=== PATIENT | female | born 1985 | race Caucasian/White ===

== ENCOUNTER 2020-11-17 03:18 | Emergency (ER) | payer OTHER, SELFPAY ==
[2020-11-17 03:22] VITALS: BP 190/104; PULSE 70; RESP 18; TEMP 36.3; O2SAT 98; BMI 42.5
[2020-11-17 03:28] LABS: Basophils % 0.4 %; Eosinophils % 0.1 %; Hematocrit 43.5 % (37.0-47.0); Hemoglobin 14.8 g/dL (11.5-15.3); Lymphocytes # 1.2 10^3/uL (0.8-4.8); Lymphocytes % 17.7 %; Mean Corpuscular Hemoglobin 30.6 pg (28.0-34.0); Mean Corpuscular Volume 90.1 fL (81-99); Monocytes # 0.3 10^3/uL (0.2-0.9); Monocytes % 4.3 %; Neutrophils # 5.42 10^3/uL (1.8-7.7); Neutrophils % 77.2 %; Nucleated Red Blood Cells % 0 %; Platelet Count 311 10^3/cmm (130-400); Red Blood Count 4.83 10^6/uL (4.1-5.3); Red Cell Distribution Width 11.5 % (12.1-15.1)
--- NOTE | 2020-11-17 03:34 | ED_ITS ---
HPI - Abdominal Pain General: Chief Complaint: Abdominal Pain Stated Complaint: possible gallbladder issue Time Seen by Provider: 11/17/20 03:19 Source: patient Mode of arrival: ambulatory Limitations: no limitations History of Present Illness: HPI narrative: 35-year-old female states she had been having right upper quadrant pain over the last 8 hours. States been a sharp pain that started after she ate this evening. She also had vomiting and nausea. States she had issues like this in the past and been told its been her gallbladder but is never follow-up with surgeon. States her pain is currently a 7 out of 10 sharp nature. States pain radiates into her back. Denies any fever. Denies any dysuria. MD elicited complaint: abdominal pain Associated Symptoms: Reports nausea and vomiting; Denies chills, dysuria and fever(s) Review of Systems Const: Denies: fever(s), chills, body aches or change in appetite Eyes: Denies: blurry vision or eye discomfort ENMT: Denies: throat pain or dental pain Card: Denies: chest pain Resp: Denies: dyspnea GI: Reports: abdominal pain, nausea and vomiting : Denies: dysuria Musc: Denies: neck pain or back pain Skin/Breast: Denies: rash Neuro: Denies: headache(s) Psych: Denies: depression Les/Lymph: Denies: easy bruising All/Imm: Denies: urticaria Physical Exam Const: COMMON NORMALS: no acute distress, patient oriented x3 and healthy appearing HENMT: COMMON NORMALS: normocephalic and atraumatic HEAD & SCALP: normocephalic and atraumatic Eye: COMMON NORMALS: Equal, round and reactive pupils present and EOMs intact bilaterally PUPIL: Yes Equal, round and reactive pupils present Neck/C-Spine: COMMON NORMALS: full ROM and supple Chest: COMMONS NORMALS: normal inspection of the chest and normal palpation of entire chest wall Resp: COMMON NORMALS: normal respiratory effort, No retractions, No use of accessory muscles and clear to auscultation bilaterally AUSCULTATION: clear to auscultation bilaterally Cardio: COMMON NORMALS: regular rate, regular rhythm and No murmurs present (Cardio) RATE: regular rate RHYTHM: regular rhythm GI: COMMON NORMALS: Normal to inspection, nondistended, normoactive bowel sounds present, Soft to palpation and no masses PALPATION: Yes Soft to palpation and Yes Tenderness to palpation present (GI) Details: RUQ Extremity: COMMON NORMALS: normal to inspection and full ROM Neuro: COMMON NORMALS: patient oriented x3, moves all extremities and no focal motor deficits Psych: COMMON NORMALS: mental status grossly normal, Normal thought process present and cooperative THOUGHT PROCESS: Normal thought process present Skin: COMMON NORMALS: no rashes or lesions noted and no wounds GENERAL SKIN EXAM: no rashes or lesions noted Course Vital Signs: Vital signs: Vital Signs Temperature 97.3 F L 11/17/20 03:22 Pulse Rate 76 11/17/20 05:31 Respiratory Rate 17 11/17/20 05:31 Blood Pressure 165/99 11/17/20 04:50 Pulse Oximetry 98 11/17/20 05:31 MDM - Abdominal Pain MDM Narrative: Medical decision making narrative: Patient presents here with abdominal pain likely from biliary colic is ultrasound shows gallstones. Patient has no signs of cholecystitis. She does have mildly elevated liver enzymes but no signs of common bile duct blockage. Patient's white count here is normal and her abdominal pain has improved. Still having some pain is to follow-up with Dr. Shah she likely needs a cholecystectomy. She is to return if worsening. Lab Data: Labs: Lab Results 11/17/20 11/17/20 11/17/20 Range/Units 03:20 03:20 03:40 WBC 7.0 (4.0-10.0) 10^3/ uL RBC 4.83 (4.1-5.3) 10^6/u L Hgb 14.8 (11.5-15.3) g/dL Hct 43.5 (37.0-47.0) % MCV 90.1 (81-99) fL MCH 30.6 (28.0-34.0) pg MCHC 34.0 (30.0-36.0) g/dL RDW 11.5 L (12.1-15.1) % Plt Count 311 (130-400) 10^3/c mm MPV 10.0 (7.4-10.4) fL Neut % (Auto) 77.2 % Lymph % (Auto) 17.7 % [place] % (Auto) 4.3 % Eos % (Auto) 0.1 % Baso % (Auto) 0.4 % Neut # (Auto) 5.42 (1.8-7.7) 10^3/u L Lymph # (Auto) 1.2 (0.8-4.8) 10^3/u L [place] # (Auto) 0.3 (0.2-0.9) 10^3/u L Eos # (Auto) 0.0 (0.0-0.8) 10^3/u L Baso # (Auto) 0.0 (0.0-0.1) 10^3/u L Nucleated RBC % (a uto) 0 % Nucleated RBCs # 0.0 /100WBC Sodium 139 (136-145) mmol/L Potassium 4.1 (3.5-5.1) mmol/L Chloride 100 (98-107) mmol/L Carbon Dioxide 28 (22-29) mmol/L Anion Gap 15.1 (5-19) BUN 9 (6-20) mg/dL Creatinine 0.6 (0.5-0.9) mg/dL GFR Calculation 114.4 (90-130) mL/min Glucose 136 H (65-115) mg/dL Calculated Osmolal ity 289 (285-295) mOsm/k g Calcium 8.9 (8.5-10.5) mg/dL Total Bilirubin 0.9 (0.15-1.2) mg/dL AST 542 H (0-32) U/L ALT 408 H (0-33) U/L Alkaline Phosphata se 64 (35-105) IU/L Total Protein 8.0 (6.6-8.7) g/dL Albumin 4.4 (3.5-5.2) g/dL Globulin 3.6 (1.3-4.6) g/dL Lipase 43 (13-60) U/L HCG, Qual Negative (Negative) Urine Color (Yellow) Urine Appearance (CLEAR) Urine pH (5-7) Ur Specific Gravit y (1.005-1.030) Urine Protein (Negative) Urine Glucose (UA) (Normal) Urine Ketones (Negative) Urine Blood (Negative) Urine Nitrate (Negative) Urine Bilirubin (Negative) Urine Urobilinogen (Negative) mg/dL Ur Leukocyte Chloe ase (Negative) Urine RBC (0-2) /hpf Urine WBC (0-5) /hpf Ur Squamous Epith Cells (0-5) /hpf Amorphous Sediment Urine Bacteria (NONE) /hpf Urine Mucus /hpf 11/17/20 Range/Units 03:40 WBC (4.0-10.0) 10^3/ uL RBC (4.1-5.3) 10^6/u L Hgb (11.5-15.3) g/dL Hct (37.0-47.0) % MCV (81-99) fL MCH (28.0-34.0) pg MCHC (30.0-36.0) g/dL RDW (12.1-15.1) % Plt Count (130-400) 10^3/c mm MPV (7.4-10.4) fL Neut % (Auto) % Lymph % (Auto) % [place] % (Auto) % Eos % (Auto) % Baso % (Auto) % Neut # (Auto) (1.8-7.7) 10^3/u L Lymph # (Auto) (0.8-4.8) 10^3/u L [place] # (Auto) (0.2-0.9) 10^3/u L Eos # (Auto) (0.0-0.8) 10^3/u L Baso # (Auto) (0.0-0.1) 10^3/u L Nucleated RBC % (a uto) % Nucleated RBCs # /100WBC Sodium (136-145) mmol/L Potassium (3.5-5.1) mmol/L Chloride (98-107) mmol/L Carbon Dioxide (22-29) mmol/L Anion Gap (5-19) BUN (6-20) mg/dL Creatinine (0.5-0.9) mg/dL GFR Calculation (90-130) mL/min Glucose (65-115) mg/dL Calculated Osmolal ity (285-295) mOsm/k g Calcium (8.5-10.5) mg/dL Total Bilirubin (0.15-1.2) mg/dL AST (0-32) U/L ALT (0-33) U/L Alkaline Phosphata se (35-105) IU/L Total Protein (6.6-8.7) g/dL Albumin (3.5-5.2) g/dL Globulin (1.3-4.6) g/dL Lipase (13-60) U/L HCG, Qual (Negative) Urine Color Yellow (Yellow) Urine Appearance Hazy A (CLEAR) Urine pH 6 (5-7) Ur Specific Gravit y 1.020 (1.005-1.030) Urine Protein 2+ H (Negative) Urine Glucose (UA) Norm (Normal) Urine Ketones 1+ H (Negative) Urine Blood 2+ H (Negative) Urine Nitrate Negative (Negative) Urine Bilirubin 1+ H (Negative) Urine Urobilinogen Norm (Negative) mg/dL Ur Leukocyte Chloe ase 2+ H (Negative) Urine RBC 5-10 H (0-2) /hpf Urine WBC 10-15 H (0-5) /hpf Ur Squamous Epith Cells 15-25 H (0-5) /hpf Amorphous Sediment Not Reportable Urine Bacteria 1+ H (NONE) /hpf Urine Mucus 2+ /hpf Imaging Data ^: US: Attestation: I personally reviewed and interpreted this imaging study as follows: My impression: gallstones without cholecystitis Discharge Plan Discharge Patient Disposition: Home Clinical Impression: Gallstones, Biliary colic Condition: Stable Prescriptions: New hydrocodone-acetaminophen 5-325 mg tablet 1 tab PO Q6H PRN (Reason: pain) Qty: 14 RF: 0 ondansetron 4 mg tablet,disintegrating 4 mg PO Q6H PRN (Reason: nausea and vomiting) Qty: 14 RF: 0 Discharge Orders: Discharge ED (Routine); Ordered 11/17/20 Ordered By: Zaida Avendano Referrals: Obdulia Lujan APN [Primary Care Provider] - Loki Shah MD [Physician] - 1-3 days Discharge Diet: Advance as tolerated Discharge Activity: Resume usual activity Patient Instructions: Abdominal Pain (ED), Opioid Safety Coding Level of Care Code ED Rail Engineer for Chg Fwd Exam Comprehensive
--- NOTE | 2020-11-17 03:34 | USR_ITS ---
PROCEDURE INFORMATION: Exam: US Abdomen, Limited; Right Upper Quadrant Exam date and time: 11/17/2020 4:07 AM Age: 35 years old Clinical indication: Abdominal pain; Additional info: Abd pain TECHNIQUE: Imaging protocol: US abdomen. Real time ultrasound with image documentation. Limited exam focused on the right upper quadrant. COMPARISON: No relevant prior studies available. FINDINGS: Liver: There is fatty infiltration of the liver. Gallbladder: There is cholelithiasis without wall thickening or pericholecystic fluid. Common bile duct: Common duct is 4 mm. Pancreas: Visualized pancreas is unremarkable. Right kidney: Normal. No mass. No hydronephrosis. US/US gall bladder [id number] IMPRESSION: 1. Fatty infiltration of the liver. 2. Cholelithiasis without cholecystitis.
[2020-11-17] MEDS: ondansetron 2 mg/ML SDV 2 mL 4 MG IVP (03:41)
[2020-11-17] MEDS: morphine 4 mg/mL SDV 1 mL IVP (03:42)
[2020-11-17 03:43] LABS: Alanine Aminotransferase 408 U/L (0-33); Albumin Level 4.4 g/dL (3.5-5.2); Alkaline Phosphatase 64 IU/L (35-105); Anion Gap 15.1 (5-19); Aspartate Amino Transferase 542 U/L (0-32); Blood Urea Nitrogen 9 mg/dL (6-20); Calcium 8.9 mg/dL (8.5-10.5); Carbon Dioxide 28 mmol/L (22-29); Chloride 100 mmol/L (98-107); Globulin 3.6 g/dL (1.3-4.6); Glomerular Filtration Rate 114.4 mL/min (90-130); Glucose 136 mg/dL (65-115); Lipase 43 U/L (13-60); Osmolality Calculated 289 mOsm/kg (285-295); Potassium 4.1 mmol/L (3.5-5.1); Sodium 139 mmol/L (136-145); Total Bilirubin 0.9 mg/dL (0.15-1.2)
[2020-11-17 03:54] LABS: HCG Qualitative Urine. Negative (Negative)
--- NOTE | 2020-11-17 04:14 | PC.NURSE ---
Ultrasound in room
[2020-11-17 04:16] LABS: Add Urine Microscopic? YES; Bilirubin Urine 1+ (Negative); Blood Urine 2+ (Negative); Glucose Urine UA Norm (Normal); Ketones Urine 1+ (Negative); Leukocyte Esterase Urine 2+ (Negative); Nitrate Urine Negative (Negative); Protein Urine 2+ (Negative); Urine Appearance Hazy (CLEAR); Urine Color Yellow (Yellow); Urobilinogen Urine Norm (Negative); pH Urine 6 (5-7)
[2020-11-17 04:17] LABS: Add Urine Culture? No; Bacteria Urine 1+ /hpf; Mucus Urine 2+ /hpf; Squamous Epithelial Cell Urine 15-25 /hpf (0-5)
[2020-11-17] MEDS: HYDROmorphone 1 mg/mL INJ 1 mL IVP (04:48)
[2020-11-17 04:50] VITALS: BP 165/99; PULSE 78; RESP 23; O2SAT 99
[2020-11-17 05:31] VITALS: PULSE 76; RESP 17; O2SAT 98
--- NOTE | 2020-11-17 11:47 | DCPLANNER ---
risk and insurance manager had message to schedule a follow up appointment for patient with Dr. Shah. risk and insurance manager faxed patients information to the office of Dr. Shah, will call for appointment information.
--- NOTE | 2020-11-26 08:41 | DCPLANNER ---
Patient has a follow up appointment scheduled for Tuesday, December 01, 2020 at 10:[address] Shah. Clinic will contact patient with appointment information.
--- NOTE | 2020-12-17 15:40 | DCPLANNER ---
Patient had a follow up appointment scheduled for 12.02.[address] Shah - patient did attend appointment.
== END 2020-11-17 06:10 | disposition home or self-care (01) ==
PROVIDERS: Emergency Provider Emergency Medicine; PCP Nurse Practitioner
DX: K80.70 Calculus of gallbladder and bile duct without cholecystitis without obstruction (principal)
CPT/HCPCS: 76705; 80053; 81001; 81025; 83690; 85025; 96374; 96375; 99283; J1170; J2270; J2405

== ENCOUNTER 2020-11-18 11:27 | Emergency (ER) | payer OTHER, SELFPAY ==
[2020-11-18] VITALS (17 sets, daily range): BP systolic 103–164; BP diastolic 63–139; PULSE 61–116; RESP 14–20; TEMP 36.5–38.8; O2SAT 94–99; BMI 43.3
--- NOTE | 2020-11-18 12:22 | US_ITS ---
WS: [id number] ULTRASOUND ABDOMEN LIMITED CLINICAL INFORMATION: worsening RUQ pain COMPARISON: None. FINDINGS: Liver Size: Normal. Craniocaudal length: 15.7 cm. Echogenicity: Diffuse fatty infiltration Surface nodularity: None. Mass (size and location): None. Bile ducts Intrahepatic ducts: Normal. Common bile duct diameter: 11 mm. Gallbladder Cholelithiasis with wall thickening and gallbladder wall edema Gallstones: Present Gallbladder sludge: None. Gallbladder wall thickenin.8 cm Pancreas Normal as visualized. Right kidney: Normal. Hydronephrosis: None. Size: 10.0 cm x 5.7 cm x 5.4 cm. Abdominal aorta and IVC Visualized portions are normal. Ascites: None. US/US gall bladder [id number] IMPRESSION: 1. Cholelithiasis with gallbladder wall thickening with edema. This is progres sed since November 18, 2019 suspicious for acute cholecystitis 2. Prominent calculus Near the gallbladder neck. 3. Common bile duct appears more dilated today measuring 11 mm. This can be fu rther evaluated with MRCP.
--- NOTE | 2020-11-18 12:39 | W.ED.ABDPA2 ---
HPI - Abdominal Pain General: Chief Complaint: Abdominal Pain Stated Complaint: abd pain, fever Time Seen by Provider: 11/18/20 12:34 Source: patient Mode of arrival: ambulatory Limitations: no limitations History of Present Illness: HPI narrative: Patient is a nice 35-year-old female who presents to ED today along with her for complaints of right upper quadrant pain. Patient was seen at our facility yesterday and discharged home with follow-up with general surgery for probable biliary colic. She states since her discharge pain has become increasingly severe and she has now developed a fever of 101.8. Patient tells me she has had intermittent right upper quadrant pains for several months however pain became worse and constant starting on Monday. She has no known medical problems and takes no prescription medications (other than what was prescribed yesterday). MD elicited complaint: abdominal pain Pertinent past history: none Onset (ago): day(s) Pain Consistency: constant Location: RUQ Severity: severe Quality: sharp Radiation: none Migration to: no migration Exacerbating factors: eating Relieving factors: nothing Associated Symptoms: Reports fever(s) and nausea; Denies change in stool character, chills, diarrhea, dysuria and vomiting Treatments prior to arrival: prescription analgesics Related Data: Date of Last Menstrual Period: 10/15/20 Review of Systems Const: Reports: fever(s) and change in appetite; Denies: chills, body aches, change in weight, fatigue or malaise Card: Denies: chest pain Resp: Denies: dyspnea GI: Reports: abdominal pain and nausea; Denies: vomiting, diarrhea or change in stool character : Denies: flank pain or dysuria Musc: Denies: neck pain or back pain Skin/Breast: Denies: rash Neuro: Denies: headache(s), numbness in extremities, weakness in extremities or sensory changes [facility] ED Female Reproductive History: Date of last menstrual period: 10/15/20 Physical Exam Const: COMMON NORMALS: patient oriented x3, no limitations and alert GENERAL APPEARANCE: cooperative and in distress (uncomfortable appearing) NUTRITIONAL APPEARANCE: obese ORIENTATION/CONSCIOUSNESS: Yes awake, Yes oriented to person, Yes oriented to place and Yes oriented to time HENMT: COMMON NORMALS: normocephalic and atraumatic HEAD & SCALP: normocephalic and atraumatic Resp: COMMON NORMALS: normal respiratory effort and clear to auscultation bilaterally AUSCULTATION: clear to auscultation bilaterally Cardio: COMMON NORMALS: regular rhythm RATE: tachycardic RHYTHM: regular rhythm GI: COMMON NORMALS: Normal to inspection, nondistended, normoactive bowel sounds present, Soft to palpation, No hepatosplenomegaly present and no masses AUSCULTATION: Yes normoactive bowel sounds PALPATION: Yes Soft to palpation, Yes Tenderness to palpation present (GI) Details: RUQ (+ Lala's) and Yes No hepatosplenomegaly present : COMMON NORMALS: Yes no CVA tenderness BLADDER/KIDNEY EXAM: Yes no CVA tenderness Back/Pelvis: COMMON NORMALS: no CVA tenderness Extremity: COMMON NORMALS: capillary refill normal, no clubbing, cyanosis or edema, no calf tenderness and no pedal edema Neuro: RIKA COMA SCALE: document GCS findings Rika coma scale eye opening: Spontaneous Rika coma scale verbal response: Orientated [place] coma scale motor response: Obey commands Rika coma scale total score: 15 COMMON NORMALS: patient oriented x3, CN's II-XII intact bilaterally, moves all extremities, no focal motor deficits and no sensory deficits noted SENSORIUM/ORIENTATION: Yes alert, Yes oriented to person, Yes oriented to place and Yes oriented to time Skin: COMMON NORMALS: no rashes or lesions noted GENERAL SKIN EXAM: no rashes or lesions noted Course Consultations: Consultation #1: Dr. Shah-will come evaluate patient in ED Vital Signs: Vital signs: Vital Signs Temperature 98.7 F 11/18/20 14:19 Pulse Rate 84 11/18/20 14:19 Respiratory Rate 18 11/18/20 13:45 Blood Pressure 139/95 11/18/20 14:19 Pulse Oximetry 95 11/18/20 14:19 MDM - Abdominal Pain MDM Narrative: Medical decision making narrative: Patient here for continued and worsening right upper quadrant abdominal pains. LFTs have improved since yesterday's visit however she arrived tachycardic and febrile with a fever of 101.8. Repeat gallbladder ultrasound shows progressed gallbladder wall thickening and edema suspicious for acute cholecystitis. Lipase is 73. Normal bilirubin. White count is 10.9 with a normal lactate. I have spoken with Dr. Shah who will come evaluate patient. Ultrasound gallbladder mentioned possible further evaluation with MRCP however Dr. Shah stated we did not need to obtain. She has been given IV fluids/pain and nausea meds/Zosyn. Pain is adequately controlled currently. Dr. Shah has evaluated and will take to OR. He is placing admit orders. Lab Data: Attestation: I reviewed the patient's lab results. Labs: Lab Results 11/18/20 11/18/20 11/18/20 Range/Units 12:15 13:00 13:00 WBC 10.9 H (4.0-10.0) 10^3/ uL RBC 4.97 (4.1-5.3) 10^6/u L Hgb 14.9 (11.5-15.3) g/dL Hct 45.0 (37.0-47.0) % MCV 90.5 (81-99) fL MCH 30.0 (28.0-34.0) pg MCHC 33.1 (30.0-36.0) g/dL RDW 11.7 L (12.1-15.1) % Plt Count 315 (130-400) 10^3/c mm MPV 10.0 (7.4-10.4) fL Neut % (Auto) 71.2 % Lymph % (Auto) 20.7 % [place] % (Auto) 6.9 % Eos % (Auto) 0.3 % Baso % (Auto) 0.5 % Neut # (Auto) 7.75 H (1.8-7.7) 10^3/u L Lymph # (Auto) 2.3 (0.8-4.8) 10^3/u L [place] # (Auto) 0.8 (0.2-0.9) 10^3/u L Eos # (Auto) 0.0 (0.0-0.8) 10^3/u L Baso # (Auto) 0.1 (0.0-0.1) 10^3/u L Nucleated RBC % (a uto) 0 % Nucleated RBCs # 0.0 /100WBC Sodium 139 (136-145) mmol/L Potassium 3.8 (3.5-5.1) mmol/L Chloride 99 (98-107) mmol/L Carbon Dioxide 28 (22-29) mmol/L Anion Gap 15.8 (5-19) BUN 10 (6-20) mg/dL Creatinine 0.7 (0.5-0.9) mg/dL GFR Calculation 95.8 (90-130) mL/min Glucose 94 (65-115) mg/dL Calculated Osmolal ity 287 (285-295) mOsm/k g Lactic Acid (0.5-2.2) mmol/L Calcium 8.9 (8.5-10.5) mg/dL Total Bilirubin 0.5 (0.15-1.2) mg/dL AST 95 H (0-32) U/L ALT 225 H (0-33) U/L Alkaline Phosphata se 64 (35-105) IU/L Total Protein 8.0 (6.6-8.7) g/dL Albumin 4.4 (3.5-5.2) g/dL Globulin 3.6 (1.3-4.6) g/dL Lipase 73 H (13-60) U/L HCG, Qual (Negative) Urine Color Yellow (Yellow) Urine Appearance Clear (CLEAR) Urine pH 5 (5-7) Ur Specific Gravit y 1.015 (1.005-1.030) Urine Protein Trace (Negative) Urine Glucose (UA) Norm (Normal) Urine Ketones Negative (Negative) Urine Blood 2+ H (Negative) Urine Nitrate Negative (Negative) Urine Bilirubin Neg (Negative) Urine Urobilinogen Norm (Negative) mg/dL Ur Leukocyte Chloe ase 1+ H (Negative) Urine RBC 0-4 H (0-2) /hpf Urine WBC 5-10 H (0-5) /hpf Ur Squamous Epith Cells 5-10 H (0-5) /hpf Amorphous Sediment Not Reportable Urine Bacteria 1+ H (NONE) /hpf Urine Mucus 1+ /hpf 11/18/20 11/18/20 Range/Units 13:00 13:00 WBC (4.0-10.0) 10^3/ uL RBC (4.1-5.3) 10^6/u L Hgb (11.5-15.3) g/dL Hct (37.0-47.0) % MCV (81-99) fL MCH (28.0-34.0) pg MCHC (30.0-36.0) g/dL RDW (12.1-15.1) % Plt Count (130-400) 10^3/c mm MPV (7.4-10.4) fL Neut % (Auto) % Lymph % (Auto) % [place] % (Auto) % Eos % (Auto) % Baso % (Auto) % Neut # (Auto) (1.8-7.7) 10^3/u L Lymph # (Auto) (0.8-4.8) 10^3/u L [place] # (Auto) (0.2-0.9) 10^3/u L Eos # (Auto) (0.0-0.8) 10^3/u L Baso # (Auto) (0.0-0.1) 10^3/u L Nucleated RBC % (a uto) % Nucleated RBCs # /100WBC Sodium (136-145) mmol/L Potassium (3.5-5.1) mmol/L Chloride (98-107) mmol/L Carbon Dioxide (22-29) mmol/L Anion Gap (5-19) BUN (6-20) mg/dL Creatinine (0.5-0.9) mg/dL GFR Calculation (90-130) mL/min Glucose (65-115) mg/dL Calculated Osmolal ity (285-295) mOsm/k g Lactic Acid 1.2 (0.5-2.2) mmol/L Calcium (8.5-10.5) mg/dL Total Bilirubin (0.15-1.2) mg/dL AST (0-32) U/L ALT (0-33) U/L Alkaline Phosphata se (35-105) IU/L Total Protein (6.6-8.7) g/dL Albumin (3.5-5.2) g/dL Globulin (1.3-4.6) g/dL Lipase (13-60) U/L HCG, Qual Negative (Negative) Urine Color (Yellow) Urine Appearance (CLEAR) Urine pH (5-7) Ur Specific Gravit y (1.005-1.030) Urine Protein (Negative) Urine Glucose (UA) (Normal) Urine Ketones (Negative) Urine Blood (Negative) Urine Nitrate (Negative) Urine Bilirubin (Negative) Urine Urobilinogen (Negative) mg/dL Ur Leukocyte Chloe ase (Negative) Urine RBC (0-2) /hpf Urine WBC (0-5) /hpf Ur Squamous Epith Cells (0-5) /hpf Amorphous Sediment Urine Bacteria (NONE) /hpf Urine Mucus /hpf Imaging Data ^: US gallbladder: Radiologist's impression: [facility] [place], [place] [id number] ReportSigned Patient: Maryana Arguello #: [id number]: 1985Acct#:[id number]/Sex: 35 / FADM Date: 11/18/20Loc: ERRoom/Bed:Attending Dr: Ordering Provider/Ordering MD: Anuja Bragg Date of Service: 11/18/20 Procedure(s): US gall bladder [id number] Accession Number(s): [id number] Report Number: [id number] WS: [id number] ULTRASOUND ABDOMEN LIMITED CLINICAL INFORMATION: worsening RUQ pain COMPARISON: None. FINDINGS: Liver Size: Normal. Craniocaudal length: 15.7 cm. Echogenicity: Diffuse fatty infiltration Surface nodularity: None. Mass (size and location): None. Bile ducts Intrahepatic ducts: Normal. Common bile duct diameter: 11 mm. Gallbladder Cholelithiasis with wall thickening and gallbladder wall edema Gallstones: Present Gallbladder sludge: None. Gallbladder wall thickenin.8 cm Pancreas Normal as visualized. Right kidney: Normal. Hydronephrosis: None. Size: 10.0 cm x 5.7 cm x 5.4 cm. Abdominal aorta and IVC Visualized portions are normal. Ascites: None. US/US gall bladder [id number] IMPRESSION: 1. Cholelithiasis with gallbladder wall thickening with edema. This is progressed since November 18, 2019 suspicious for acute cholecystitis 2. Prominent calculus Near the gallbladder neck. 3. Common bile duct appears more dilated today measuring 11 mm. This can be further evaluated with MRCP. Dictated By:Dash Houston MDSigned By:Dash Houston MDSigned Date/Time:11/18/20 1420DD/ 1413 Discharge Plan Discharge Patient Disposition: Admitted As Inpatient Clinical Impression: Acute cholecystitis Condition: Stable Coding Level of Care Code ED Circus Performer for Chg Fwd Exam Comprehensive
[2020-11-18 12:46] LABS: Add Urine Culture? No; Add Urine Microscopic? YES; Bacteria Urine 1+ /hpf; Bilirubin Urine Neg (Negative); Blood Urine 2+ (Negative); Glucose Urine UA Norm (Normal); Ketones Urine Negative (Negative); Leukocyte Esterase Urine 1+ (Negative); Mucus Urine 1+ /hpf; Nitrate Urine Negative (Negative); Protein Urine Trace (Negative); RBC Urine 0-4 /hpf (0-2); Specific Gravity, Urine 1.015 (1.005-1.030); Urine Appearance Clear (CLEAR); Urine Color Yellow (Yellow); Urobilinogen Urine Norm (Negative); pH Urine 5 (5-7)
[2020-11-18 13:05] LABS: Basophils # 0.1 10^3/uL (0.0-0.1); Basophils % 0.5 %; Eosinophils % 0.3 %; Hemoglobin 14.9 g/dL (11.5-15.3); Lymphocytes # 2.3 10^3/uL (0.8-4.8); Lymphocytes % 20.7 %; Mean Corpuscular HGB Conc 33.1 g/dL (30.0-36.0); Mean Corpuscular Volume 90.5 fL (81-99); Monocytes # 0.8 10^3/uL (0.2-0.9); Monocytes % 6.9 %; Neutrophils # 7.75 10^3/uL (1.8-7.7); Neutrophils % 71.2 %; Nucleated Red Blood Cells % 0 %; Platelet Count 315 10^3/cmm (130-400); Red Blood Count 4.97 10^6/uL (4.1-5.3); Red Cell Distribution Width 11.7 % (12.1-15.1); White Blood Count 10.9 10^3/uL (4.0-10.0)
[2020-11-18] MEDS: piperacillin-tazobactam 3.375 GM in sodium chloride 0.9% (plus) 50 ML IV (13:07)
[2020-11-18] MEDS: sodium chloride 0.9% 1,000 ML 999 ML IV (13:14)
[2020-11-18] MEDS: acetaminophen 500 mg Tablet 1000 MG PO (13:17)
[2020-11-18 13:25] LABS: HCG, Serum Qual Negative (Negative)
[2020-11-18 13:31] LABS: Lactic Sepsis W/Reflex 1.2 mmol/L (0.5-2.2)
[2020-11-18 13:33] LABS: Alanine Aminotransferase 225 U/L (0-33); Albumin Level 4.4 g/dL (3.5-5.2); Alkaline Phosphatase 64 IU/L (35-105); Anion Gap 15.8 (5-19); Aspartate Amino Transferase 95 U/L (0-32); Blood Urea Nitrogen 10 mg/dL (6-20); Calcium 8.9 mg/dL (8.5-10.5); Carbon Dioxide 28 mmol/L (22-29); Chloride 99 mmol/L (98-107); Globulin 3.6 g/dL (1.3-4.6); Glomerular Filtration Rate 95.8 mL/min (90-130); Glucose 94 mg/dL (65-115); Lipase 73 U/L (13-60); Osmolality Calculated 287 mOsm/kg (285-295); Potassium 3.8 mmol/L (3.5-5.1); Sodium 139 mmol/L (136-145); Total Bilirubin 0.5 mg/dL (0.15-1.2)
[2020-11-18] MEDS: ondansetron 2 mg/ML SDV 2 mL 4 MG IVP (13:44)
[2020-11-18] MEDS: morphine 4 mg/mL SDV 1 mL IVP (13:45)
--- NOTE | 2020-11-18 15:20 | P.HP_ITS ---
Providers/Chief Complaint Admitting Physician: General Surgery Loki Shah MD Primary Care Provider: Obdulia Lujan APN Chief Complaint: AB PAIN, POSS GALLBLADDER History of Present Illness Maryana Arguello is a 35 year old female who started having some right upper quadrant pain about 48 hours ago. This wrapped around the right side of her abdomen to her back. She developed nausea and vomiting the first evening. She came into the emergency department yesterday and an ultrasound revealed some cholelithiasis but no evidence of acute cholecystitis. She did have some elevation of her transaminases but her labs were otherwise normal. She was sent home with instructions to follow-up with me in my office, although she says she really did not feel that much better when she left the emergency department. I actually talked her on the phone yesterday and told her that if her pain did not get better to come back to the emergency room. She says she has been up all night with pain and has had more vomiting. There has never been any evidence of hematochezia, hematemesis, melena, etc. She has run fever at home. She has not eaten anything since yesterday. The patient returned to the emergency department today. A repeat ultrasound today showed that the patient has a gallbladder wall which is now getting thickened and they think they can see a stone in the neck of the gallbladder. The patient's transaminases are improved but her white blood cell count is now mildly elevated. Her bilirubin remains normal. In talking to the patient it sounds like she has had episodes of right upper quadrant pain similar to this over the past 5 years. She was actually worked up with a HIDA scan many years ago but apparently it looked okay. She has not noticed that food particularly causes her problems, but she will wake up in the middle of the night with these episodes not infrequently. They have become more frequent over the past few months. Review of Systems Const: Reports: fever(s) GI: Reports: abdominal pain, nausea and vomiting; Denies: hematemesis or melena Medications/Allergies Home Medications Medication Instructions Recorded Confirmed Last Taken Type hydrocodone-acetaminophen 1 tab PO Q6H PRN #14 tab 11/17/20 11/18/20 11/18/20 Rx ondansetron 4 mg PO Q6H PRN #14 tab 11/17/20 11/18/20 11/18/20 Rx Allergies Allergy/AdvReac Type Severity Reaction Status Date / Time Sulfa (Sulfonamide Allergy White Verified 11/18/20 15:30 Antibiotics) blood cell count bottomed out PFSH Acute PFSH: Medical History (Updated 11/18/20 @ 15:29 by Loki Shah MD) No significant past medical history Surgical History (Updated 11/18/20 @ 15:29 by Loki Shah MD) History of back surgery Lumbar x2 History of tonsillectomy Social History (Updated 11/18/20 @ 15:34 by Loki Shah MD) Smoking and tobacco status: never smoked Alcohol intake: current Alcohol use comment: Occasional Female Reproductive History: Date of last menstrual period: 10/15/20 Vitals/I&O/Wt Last Vital Signs Temp 98.7 F 11/18/20 14:19 Pulse 84 11/18/20 14:19 Resp 18 11/18/20 13:45 BP 139/95 11/18/20 14:19 Pulse Ox 95 11/18/20 14:19 11/18/20 11/18/20 11/18/20 06:59 14:59 22:59 Intake Total 50 / 50 Balance 50 / 50 Weight last 48 hrs Weight 285 lb Physical Exam Narrative: EXAM NARRATIVE: The patient was encountered in her room in the emergency department. She does not appear to be in any distress. The pupils are equal. No neck masses are palpated. The lungs are clear to auscultation. The heart is regular. The abdomen is moderately obese but is soft. Bowel sounds are hypoactive. The patient's maximum point of tenderness is in the right subcostal region with an equivocal Lala's sign. No obvious masses are palpated. The extremities reveal no edema. Neurologically the patient appears to be grossly intact. Data : 11/18/20 13:00 11/18/20 13:00 Micro: Microbiology 11/18/20 13:32 Blood Culture - Preliminary Blood SPECIMEN COLLECTED 11/18/20 13:28 Blood Culture - Preliminary Blood SPECIMEN COLLECTED Laboratory Tests 11/18/20 13:00 Total Bilirubin 0.5 AST 95 H ALT 225 H Alkaline Phosphatase 64 Lipase 73 H Laboratory Tests 11/18/20 13:00 HCG, Qual Negative US: Radiologist's impression: Ultrasound gallbladder 11/18/2020 IMPRESSION: 1. Cholelithiasis with gallbladder wall thickening with edema. This is progressed since November 18, 2019 suspicious for acute cholecystitis 2. Prominent calculus Near the gallbladder neck. 3. Common bile duct appears more dilated today measuring 11 mm. This can be further evaluated with MRCP. A&P Assessment and plan (1) Acute cholecystitis due to biliary calculus: I have discussed gallbladder disease and gallbladder surgery with the patient. It sounds like she is probably having been having symptoms of biliary colic for up to 5 years. We discussed surgical details and surgical risks including bleeding, infection, internal organ injury, chances of an open procedure, chances of postoperative bile leaks or bowel habit changes, etc. The patient seems to understand and would like to proceed with a cholecystectomy today. The patient has been n.p.o. since yesterday with the exception of a couple sips of water with some medications earlier today. I am going to make arrangements for a laparoscopic or possibly open cholecystectomy today. Status: Acute Attestations Medical Necessity Statement*: Based on my medical assessment, presenting symptoms and consideration of the scope of surgical therapy, I expect this patient will require treatment in the hospital for a period of time spanning less than 2 midnights, and is therefore being placed in observation status. Coding Level of Care Code Acute Day Treatment Clinician/Art Therapist for Isaias Schroeder Diagnoses Acute cholecystitis due to biliary calculus K80.00
--- NOTE | 2020-11-18 15:35 | P.ANESASSM_ITS ---
Pre-Anesthetic Assessment Pre-Anesthetic Assessment: Height/Weight: Height 1.73 m Weight 129.274 kg Temp Pulse Resp BP Pulse Ox 98.7 F 84 18 139/95 95 11/18/20 14:19 11/18/20 14:19 11/18/20 13:45 11/18/20 14:19 11/18/20 14:19 Proposed Procedure: Operation Date: 11/18/20 16:20 Proposed Procedures p Laparoscopic Cholecystectomy(Not Applicable) - Loki Shah MD Was Beta Patty taken within 24 hours: N/A Was Clonidine taken within 24 hours: N/A Social: Social History: No alcohol and No tobacco Exam: Pre-Anes Outpt Exam: alert, oriented x 3, clear to auscultation bilaterally and regular rate & rhythm Airway: Submandibular: WNL Cervical ROM: WNL MP: 2 Dentition: Full History/ROS: No significant history except as noted GI: Comments: Acute abdomen Metabolic: Metabolic: Morbid obesity Anesthetic Plan: ASA status: 2 Anesthesia: General (Mod RSI) Risk of > 500 ml blood loss (7ml/kg in children): No PFSH Anesthesia PFSH: Medical History (Updated 11/18/20 @ 15:29 by Loki Shah MD) No significant past medical history Surgical History (Updated 11/18/20 @ 15:29 by Loki Shah MD) History of back surgery Lumbar x2 History of tonsillectomy Social History (Updated 11/18/20 @ 15:34 by Loki Shah MD) Smoking and tobacco status: never smoked Alcohol intake: current Alcohol use comment: Occasional Female Reproductive History: Date of last menstrual period: 10/15/20 Data Anesthesia CBC & Chem 7: 11/18/20 13:00 11/18/20 13:00 Other Labs: Laboratory Results - last 48 hr 11/18/20 11/18/20 11/18/20 12:15 13:00 13:00 WBC 10.9 H RBC 4.97 Hgb 14.9 Hct 45.0 MCV 90.5 MCH 30.0 MCHC 33.1 RDW 11.7 L Plt Count 315 MPV 10.0 Neut % (Auto) 71.2 Lymph % (Auto) 20.7 Caldwell % (Auto) 6.9 Eos % (Auto) 0.3 Baso % (Auto) 0.5 Neut # (Auto) 7.75 H Lymph # (Auto) 2.3 Caldwell # (Auto) 0.8 Eos # (Auto) 0.0 Baso # (Auto) 0.1 Nucleated RBC % (auto) 0 Nucleated RBCs # 0.0 Sodium 139 Potassium 3.8 Chloride 99 Carbon Dioxide 28 Anion Gap 15.8 BUN 10 Creatinine 0.7 GFR Calculation 95.8 Glucose 94 Calculated Osmolality 287 Lactic Acid Calcium 8.9 Total Bilirubin 0.5 AST 95 H ALT 225 H Alkaline Phosphatase 64 Total Protein 8.0 Albumin 4.4 Globulin 3.6 Lipase 73 H HCG, Qual Urine Color Yellow Urine Appearance Clear Urine pH 5 Ur Specific Badger 1.015 Urine Protein Trace Urine Glucose (UA) Norm Urine Ketones Negative Urine Blood 2+ H Urine Nitrate Negative Urine Bilirubin Neg Urine Urobilinogen Norm Ur Leukocyte Esterase 1+ H Urine RBC 0-4 H Urine WBC 5-10 H Ur Squamous Epith Cells 5-10 H Amorphous Sediment Not Reportable Urine Bacteria 1+ H Urine Mucus 1+ 11/18/20 11/18/20 13:00 13:00 WBC RBC Hgb Hct MCV MCH MCHC RDW Plt Count MPV Neut % (Auto) Lymph % (Auto) Caldwell % (Auto) Eos % (Auto) Baso % (Auto) Neut # (Auto) Lymph # (Auto) Caldwell # (Auto) Eos # (Auto) Baso # (Auto) Nucleated RBC % (auto) Nucleated RBCs # Sodium Potassium Chloride Carbon Dioxide Anion Gap BUN Creatinine GFR Calculation Glucose Calculated Osmolality Lactic Acid 1.2 Calcium Total Bilirubin AST ALT Alkaline Phosphatase Total Protein Albumin Globulin Lipase HCG, Qual Negative Urine Color Urine Appearance Urine pH Ur Specific Badger Urine Protein Urine Glucose (UA) Urine Ketones Urine Blood Urine Nitrate Urine Bilirubin Urine Urobilinogen Ur Leukocyte Esterase Urine RBC Urine WBC Ur Squamous Epith Cells Amorphous Sediment Urine Bacteria Urine Mucus Micro: Microbiology 11/18/20 13:32 Blood Culture - Preliminary Blood SPECIMEN COLLECTED 11/18/20 13:28 Blood Culture - Preliminary Blood SPECIMEN COLLECTED Cardiac Studies: No Data to Display
[2020-11-18] MEDS: sodium chloride 0.9% 1,000 ML 30 ML IV (15:40)
[2020-11-18] MEDS: scopolamine 1.5 Patch 1 PATCH TRANSDERMA (16:03)
--- NOTE | 2020-11-18 16:37 | PM.OP ---
Operative Report Date of procedure: November 18, 2020 Pre-op Diagnosis: Acute calculus cholecystitis. Post-op diagnosis: same Procedure Done: Laparoscopic cholecystectomy. Specimens removed/disposition: Gallbladder. Surgeon: Loki Shah Anesthesia: General Estimated blood loss (mL): 10 Complications: None. Condition: stable Disposition: PACU Procedure: The patient was brought to the Operating Room and was placed in a supine position on the Operating Room table. General endotracheal anesthesia was induced. The abdomen was prepped and draped in a sterile fashion. A small vertical incision was carried out in the inferior aspect of the umbilicus. Blunt dissection was carried out down to the fascia, which was grasped with a Elo clamp. A stay suture of 0 Vicryl was placed on either side of the midline and the midline fascia was incised. The underlying peritoneum was opened bluntly and the Gunnar port was placed directly into the peritoneal cavity and was held in place with the inflatable balloon. The peritoneal cavity was insufflated with carbon dioxide. The laparoscope was used to inspect the abdominal cavity. The gallbladder appeared to be distended and had some inflammatory changes. No other gross abnormalities were initially noted. A 5 millimeter port was placed in the epigastrium under direct vision. Two 5-millimeter ports were placed on the right side of the abdomen under direct vision. The gallbladder was palpated with instruments and was found to be quite distended. A laparoscopic needle was used to suction approximately 50 mL of bile out of the gallbladder so that the wall was more pliable. The gallbladder was then grasped and was elevated. There were a few subacute adhesions to the gallbladder wall which were easily taken down. Blunt dissection and hydrodissection were carried out in the infundibular region of the gallbladder and the cystic duct and cystic artery were identified. The tissue in the infundibulum and the gallbladder bed was edematous and somewhat friable, very typical of acute cholecystitis changes. The gallbladder was partially removed from the liver bed using cautery and the spatula to confirm the anatomy before the structures were clipped and divided. The gallbladder was then removed from the liver bed using cautery and the spatula. After the gallbladder had been removed from the liver bed, the laparoscope was moved to the epigastric port and the gallbladder was removed from the peritoneal cavity through the umbilical port site after being placed in a laparoscopic bag. The stay sutures of Vicryl at the umbilicus were grasped with plans to tie them and close the fascial layer, but pulled through. 2 new [id number] sutures of 0 Vicryl were placed at the fascial layer, closing the defect so that it was airtight. The perihepatic spaces were irrigated with saline and the liver bed was reinspected. No ongoing problems were seen. The remaining ports were removed from the abdominal wall and the pneumoperitoneum was evacuated. All skin incisions were closed using inverted interrupted sutures of 4-0 Vicryl. Benzoin and Steri-Strips were placed over the incisions and Band-Aids followed. The patient was taken to the Recovery Area in stable condition postoperatively.
[2020-11-18] MEDS: fentaNYL 50 mcg/mL INJ 2mL IVP ×2 (16:48→16:53)
--- NOTE | 2020-11-18 16:58 | ANE.PACU2 ---
Inpatient post-anesthesia follow up: Airway intact: Yes Vital signs: Temperature 98.7 F Pulse Rate [Left R adial] 116 Pulse Rate 84 Respiratory Rate 18 Blood Pressure [Le ft Arm] 164/139 Blood Pressure 139/95 Pulse Oximetry 95 Oxygen Delivery Me thod Room Air Oxygen Flow Rate Fraction of Inspir ed Oxygen Hydration adequate: Yes Nausea and vomiting: No Pain level: 2 Mental status: Baseline
[2020-11-18] MEDS: HYDROmorphone 1 mg/mL INJ 1 mL 0.25 MG IVP ×2 (17:01→17:11)
--- NOTE | 2020-11-19 13:58 | PM.DCS ---
Discharge Providers Date of Admission: November 18, 2020 Date of Discharge: November 18, 2020 Attending Provider at Admission: General Surgery Loki Shah MD Attending Provider at Discharge: General Surgery Loki Shah MD Primary Care Provider: Obdulia Lujan APN Diagnoses at Discharge Discharge Diagnosis (1) Acute cholecystitis due to biliary calculus: Status: Resolved Reason for Visit Reason for Visit: AB PAIN, POSS GALLBLADDER Hospital Course Hospital Course This is a 35-year-old white female who in retrospect had an ongoing history of biliary colic. She presented to the emergency room with a particularly bad episode of abdominal pain but her ultrasound, although showing cholelithiasis, did not show evidence of acute cholecystitis and her white blood cell count was normal. She was discharged but returned the following day with continuing pain, nausea, fevers, etc. Her white blood cell count was found to be minimally elevated but her repeat ultrasound did show some early thickening of the gallbladder wall consistent with developing acute cholecystitis. The patient was counseled with respect to a cholecystectomy and underwent a cholecystectomy the same day. Transfer orders were done to put her on the floor under observation status; she was thinking that she may want to go home later in the day, but we planned to see how she was doing a few hours after surgery. The recovery room staff apparently misunderstood this and actually discharged her right from the recovery room/Outpatient Surgery. They said she was doing well. I contacted the patient this morning and she said she was doing fine. I apologized for the confusion in the postoperative plans but she seems to be okay with how things transpired. Arrangements have already been made for the patient to follow-up with me as an outpatient in my office. Physical Exam Narrative: EXAM NARRATIVE: The patient's vital signs were stable. Discharge Data Data Completed and Pending: Completed Studies During Hospitalization Category Date Time Status US gall bladder 7 [id number] Urgent Ultrasound 11/18/20 12:22 Completed Pending at discharge Category Date Time Status ES surgery / GI i mages Routine Exams 11/18/20 15:51 Taken Blood Culture Sta t Lab 11/18/20 13:32 Results Pathology: Surgic al [PTH] Routine Pth 11/18/20 16:38 Received Vitals: Last Vital Signs Temp 98.0 F 11/18/20 17:50 Pulse 68 11/18/20 17:50 Resp 16 11/18/20 17:50 BP 140/84 11/18/20 17:50 Pulse Ox 95 11/18/20 17:50 Discharge Plan Discharge Patient Disposition: Home Clinical Impression: Acute cholecystitis Condition: Stable Prescriptions: New hydrocodone-acetaminophen 5-325 mg tablet 1 - 2 tab PO Q5H PRN (Reason: pain) Qty: 30 RF: 0 Continued ondansetron 4 mg tablet,disintegrating 4 mg PO Q6H PRN (Reason: nausea and vomiting) Qty: 14 RF: 0 Held hydrocodone-acetaminophen 5-325 mg tablet 1 tab PO Q6H PRN (Reason: pain) Qty: 14 RF: 0 Hold Instructions: Resume on 11/23/20. Do not take additional identical pain medication with pain medication prescribed today. Discharge Orders: Discharge Order (Routine); Ordered 11/18/20 Ordered By: Loki Shah Discharge ED (Routine); Ordered 11/19/20 Ordered By: Loki Shah Referrals: Obdulia Lujan APN [Primary Care Provider] - Loki Shah MD [Physician] - 2 weeks (Nursing: Please call Dr. Shah's office ([phone]) and make an appointment for the patient to be seen in 10-14 days.) Discharge Diet: Advance as tolerated Discharge Activity: Limit activity as instructed Activity Restrictions/Additional Instructions: 1. Discharge to home today. 2. Appointment to see Dr. Shah in 10-14 days. 3. Bandages / bandaids off tomorrow, leave Steri-Strip(s) on, may shower. 4. Haywood 5/325 1-2 tablets by mouth every 5 hours as needed for pain. No lifting over 20 pounds, no repetitive bending or twisting, no strenuous pushing / pulling or other heavy activity. Ambulate regularly. May go up and down steps if needed. Discharge Attestations Time Spent in Discharge Care*: less than 30 min Quality Metrics Clinical Quality Measures During this hospital stay, did patient experience: None Coding Level of Care Code Acute Chg [facility] note Diagnoses Acute cholecystitis due to biliary calculus K80.00
== END 2020-11-18 18:20 | disposition home or self-care (01) ==
PROVIDERS: Surgery; Emergency Provider Physician Assistant; PCP Nurse Practitioner
PROC: 0FT44ZZ Resection of Gallbladder, Percutaneous Endoscopic Approach (ICD-10-PCS; CPT 47562; principal; 2020-11-18 16:00)
DX: K80.00 Calculus of gallbladder with acute cholecystitis without obstruction (principal)
CPT/HCPCS: 47562; 12345; 36415; 76705; 80053; 81001; 83605; 83690; 84703; 85025; 87040; 88304; 96365; 96375; 99283; J0690; J1100; J1170; J2270; J2405; J2543; J2704; J2710; J3010; J3490; J7030

== ENCOUNTER → 2021-09-08 10:46 | Outpatient (BNVA) | payer OTHER, SELFPAY | PROVIDERS: PCP Nurse Practitioner; Visit Provider Obstetrics & Gynecology | DX: N93.9 Abnormal uterine and vaginal bleeding, unspecified (principal); N97.9 Female infertility, unspecified | CPT/HCPCS: 83001; 83002; 83520; 84144; 84146; 84403; 84443 ==

== ENCOUNTER 2021-10-05 06:19 | Outpatient (CLI) | payer OTHER, SELFPAY ==
--- NOTE | 2021-10-05 06:30 | US_ITS ---
WS: [id number] TRANSABDOMINAL PELVIC AND TRANSVAGINAL PELVIC ULTRASOUND HISTORY: E28.2 - Polycystic ovarian syndrome COMPARISON: 09/13/2016 Uterus: 8.9 cm x 5.0 cm x 3.7 cm. Normal size anteverted uterus. No fibroid or mass. Several small na bothian cysts. Endometrium: 1.0 cm. Normal homogeneity throughout the endometrium. Right ovary: 3.6 cm x 2.6 cm x 2.2 cm. Minimally prominent RIGHT ovary. The RIGHT ovary is difficult to visualize due to its position very posterior in the pelvis. No mass identified. Normal vascularity is difficult to obtain. Left ovary: 3.0 cm x 2.5 cm x 2.3 cm. Normal size ovary. There are several tiny peripheral cysts. Nor mal vascularity. No solid mass. No free fluid. US/US pelvic with transvaginal IMPRESSION: 1. Normal endometrium. 2. RIGHT ovary is very difficult to visualize due to its position in the pelvi s. 3. Normal LEFT ovary with several small peripheral follicles. Suspect polycyst ic ovarian disease.
== END 2021-10-05 06:20 | disposition home or self-care (01) ==
LOC: RAD 06:20
PROVIDERS: PCP Nurse Practitioner; Visit Provider Obstetrics & Gynecology
DX: E28.2 Polycystic ovarian syndrome (principal)
CPT/HCPCS: 76830; 76856

== ENCOUNTER 2021-10-26 07:41 | Outpatient (CLI) | payer OTHER, SELFPAY ==
--- NOTE | 2021-10-26 08:00 | FL_ITS ---
WS: [id number] Hysterosalpingogram, 10/26/2021 Clinical Data: E28.2 - Polycystic ovarian syndrome Comparison: None. Fluoroscopy time: 0.6 # of spot films: 4 Findings: Dr. Lundberg injected the contrast material into the cervical canal. The uterus filled normally. No abnormal intrauterine or extrauterine masses were noted. The fallopian tubes were normal in size. There was bilateral pelvic spill. FL/FL hysterosalpingography [id number] Impression: Normal hysterosalpingogram.
[2021-10-26] MEDS: iohexol 300 mg/mL 50 mL Btl VAGINAL (08:36)
--- NOTE | 2021-10-26 17:38 | PM.ACPR ---
Procedure/Consent Procedure Narrative: Radiologic procedure Date of procedure: 10/26/2021 Date of dictation: 10/26/2021 Procedural diagnosis: Infertility Procedure done: Placement of hysterosalpingogram catheter Physician: Dr. Yifan Alvarado Anesthesia: None Indication: To assess patency of fallopian tubes Complications: None, patient tolerated the procedure well PROCEDURE: The procedure was explained to the patient and verbal consent provided. Sterile speculum was placed in the vagina and the cervix was prepped with Betadine. The cervix was grasped with a single-tooth tenaculum. Using Omnipaque dye, the HSG catheter was primed. The catheter was inserted into the cervix and the speculum was removed. Fluoroscopy was performed by the radiologist. Omnipaque dye was injected into the endometrial cavity with normal filling of the cavity. Bilateral tubes appeared normal caliber with immediate spill of dye bilaterally. The tenaculum and catheter were removed. Patient tolerated the procedure well. Please see separate radiologist report for final interpretation. Followup appointment: She is to followup at her next scheduled appointment
== END 2021-10-26 07:42 | disposition home or self-care (01) ==
PROVIDERS: PCP Nurse Practitioner; Visit Provider Obstetrics & Gynecology
DX: E28.2 Polycystic ovarian syndrome (principal)
CPT/HCPCS: 74740

== ENCOUNTER 2021-12-07 15:49 | Outpatient (CLI) | payer OTHER, SELFPAY ==
[2021-12-07 17:04] LABS: Progesterone 1.19 ng/mL
== END 2021-12-07 15:50 | disposition home or self-care (01) ==
LOC: LAB 15:52
PROVIDERS: PCP Nurse Practitioner; Visit Provider Obstetrics & Gynecology
DX: E28.2 Polycystic ovarian syndrome (principal)
CPT/HCPCS: 84144

== ENCOUNTER 2021-12-13 15:50 | Outpatient (CLI) | payer OTHER, SELFPAY | END 2021-12-13 15:51 | disposition home or self-care (01) | LOC: LAB 15:53 | PROVIDERS: PCP Nurse Practitioner; Visit Provider Obstetrics & Gynecology | DX: E28.2 Polycystic ovarian syndrome (principal) | CPT/HCPCS: 36415; 84144 ==

== ENCOUNTER → 2022-01-11 08:36 | Outpatient (BNVA) | payer OTHER, SELFPAY | PROVIDERS: PCP Nurse Practitioner; Visit Provider Obstetrics & Gynecology | DX: E28.2 Polycystic ovarian syndrome (principal) | CPT/HCPCS: 84144 ==

== ENCOUNTER → 2022-02-10 08:19 | Outpatient (BNVA) | payer OTHER, SELFPAY | PROVIDERS: PCP Nurse Practitioner; Visit Provider Obstetrics & Gynecology | DX: E28.2 Polycystic ovarian syndrome (principal); N97.9 Female infertility, unspecified | CPT/HCPCS: 84144 ==

== ENCOUNTER → 2022-03-16 08:07 | Outpatient (BNVA) | payer OTHER, SELFPAY | PROVIDERS: PCP Nurse Practitioner; Visit Provider Obstetrics & Gynecology | DX: E28.2 Polycystic ovarian syndrome (principal); N97.9 Female infertility, unspecified | CPT/HCPCS: 84144 ==

== ENCOUNTER → 2022-03-21 08:35 | Outpatient (BNVA) | payer OTHER, SELFPAY | PROVIDERS: PCP Nurse Practitioner; Visit Provider Obstetrics & Gynecology | DX: E28.2 Polycystic ovarian syndrome (principal); N97.9 Female infertility, unspecified | CPT/HCPCS: 81025; 83036; 83525 ==

== ENCOUNTER 2022-04-18 16:28 | Outpatient (CLI) | payer OTHER, SELFPAY ==
[2022-04-18 18:43] LABS: Progesterone 14.79 ng/mL
== END 2022-04-18 16:29 | disposition home or self-care (01) ==
LOC: LAB 16:36
PROVIDERS: Visit Provider Obstetrics & Gynecology
DX: N97.9 Female infertility, unspecified (principal)
CPT/HCPCS: 84144

== ENCOUNTER 2022-05-03 17:03 | Outpatient (CLI) | payer OTHER, SELFPAY ==
[2022-05-03 17:53] LABS: Progesterone 13.39 ng/mL
== END 2022-05-03 17:04 | disposition home or self-care (01) ==
LOC: LAB 17:05
PROVIDERS: Visit Provider Obstetrics & Gynecology
DX: N97.9 Female infertility, unspecified (principal)
CPT/HCPCS: 84144

== ENCOUNTER → 2022-05-05 15:00 | Outpatient (BNVA) | payer OTHER, SELFPAY | PROVIDERS: Visit Provider Obstetrics & Gynecology | DX: E28.2 Polycystic ovarian syndrome (principal) | CPT/HCPCS: 84702 ==

== ENCOUNTER → 2022-05-09 14:46 | Outpatient (BNVA) | payer OTHER, SELFPAY | PROVIDERS: Visit Provider Obstetrics & Gynecology | DX: O09.90 Supervision of high risk pregnancy, unspecified, unspecified trimester (principal) | CPT/HCPCS: 84702 ==

== ENCOUNTER → 2022-11-02 10:00 | Outpatient (BNVA) | payer OTHER, SELFPAY | PROVIDERS: Visit Provider Obstetrics & Gynecology | DX: O02.1 Missed abortion (principal) | CPT/HCPCS: 84702 ==

== ENCOUNTER → 2022-11-04 14:40 | Outpatient (BNVA) | payer OTHER, SELFPAY | PROVIDERS: Visit Provider Obstetrics & Gynecology | DX: Z34.90 Encounter for supervision of normal pregnancy, unspecified, unspecified trimester (principal) | CPT/HCPCS: 84702 ==

== ENCOUNTER → 2022-11-14 08:00 | Outpatient (BNVA) | payer OTHER, SELFPAY | PROVIDERS: Visit Provider Obstetrics & Gynecology | DX: Z32.00 Encounter for pregnancy test, result unknown (principal) | CPT/HCPCS: 84702 ==

== ENCOUNTER → 2022-11-16 08:00 | Outpatient (BNVA) | payer OTHER, SELFPAY | PROVIDERS: Visit Provider Obstetrics & Gynecology | DX: Z32.00 Encounter for pregnancy test, result unknown (principal); Z3A.00 Weeks of gestation of pregnancy not specified | CPT/HCPCS: 84702 ==

== ENCOUNTER → 2022-11-23 13:03 | Outpatient (BNVA) | payer OTHER, SELFPAY | PROVIDERS: Visit Provider Obstetrics & Gynecology | DX: Z34.90 Encounter for supervision of normal pregnancy, unspecified, unspecified trimester (principal); R82.90 Unspecified abnormal findings in urine | CPT/HCPCS: 84315; 87086 ==

== ENCOUNTER → 2022-12-14 15:25 | Outpatient (BNVA) | payer OTHER, SELFPAY | PROVIDERS: Visit Provider Obstetrics & Gynecology | DX: O36.4XX9 Maternal care for intrauterine death, other fetus (principal); Z3A.00 Weeks of gestation of pregnancy not specified | CPT/HCPCS: 76817 ==

== ENCOUNTER → 2023-04-13 15:17 | Outpatient (BNVA) | payer OTHER, SELFPAY | PROVIDERS: Visit Provider Podiatrist Foot & Ankle Surgery | DX: M79.671 Pain in right foot (principal); M71.9 Bursopathy, unspecified | CPT/HCPCS: 73630 ==

== ENCOUNTER → 2023-05-20 18:53 | Outpatient (BNVA) | payer OTHER, SELFPAY | DX: S92.535A Nondisplaced fracture of distal phalanx of left lesser toe(s), initial encounter for closed fracture (principal); X58.XXXA Exposure to other specified factors, initial encounter | CPT/HCPCS: 73630 ==